=== PATIENT | female | born 1985 | race American Indian/Alaskan Native ===

== ENCOUNTER 2017-09-12 16:49 | Emergency (ER) | payer OTHER ==
--- NOTE | 2017-09-12 21:15 | Emergency Department Report ---
ED General Adult HPI - General Chief complaint: Psych Stated complaint: BIPOLAR/PSYCHOTIC EPISODE Time Seen by Provider: 09/12/17 19:35 Source: patient, EMS Mode of arrival: Ambulatory Limitations: No Limitations - History of Present Illness Initial comments: Patient presents to the emergency department for suicidal ideations and aggressive behavior. Reports the patient has been aggressive with her family at home. The patient has a history of bipolar has not taken her medications. Patient states she is suicidal but would not discuss further plan of action. Severity scale (0 -10): 0 Consistency: constant, intermittent Worsens with: none Treatments Prior to Arrival: none - Related Data Home Medications Medication Instructions Recorded Confirmed Last Taken Unobtainable 07/29/15 07/29/15 Unknown Allergies Allergy/AdvReac Type Severity Reaction Status Date / Time No Known Allergies Allergy Verified 07/29/15 01:18 ED Review of Systems ROS: Stated complaint: BIPOLAR/PSYCHOTIC EPISODE Other details as noted in HPI Comment: All other systems reviewed and negative Constitutional: denies: chills, fever Eyes: denies: eye pain, eye discharge, vision change ENT: denies: ear pain, throat pain Respiratory: denies: cough, shortness of breath, wheezing Cardiovascular: denies: chest pain, palpitations Endocrine: no symptoms reported Gastrointestinal: denies: abdominal pain, nausea, diarrhea Genitourinary: denies: urgency, dysuria, discharge Musculoskeletal: denies: back pain, joint swelling, arthralgia Skin: denies: rash, lesions Neurological: denies: headache, weakness, paresthesias Psychiatric: suicidal thoughts, other (Aggressive behavior ). denies: anxiety, depression Hematological/Lymphatic: denies: easy bleeding, easy bruising ED Past Medical Hx - Past Medical History Previous Medical History?: Yes Hx Psychiatric Treatment: Yes (bipolar) - Surgical History Past Surgical History?: No - Social History Smoking Status: Never Smoker - Medications Home Medications: Home Medications Medication Instructions Recorded Confirmed Last Taken Type Unobtainable 07/29/15 07/29/15 Unknown History ED Physical Exam - General Limitations: No Limitations General appearance: alert, in no apparent distress - Head Head exam: Present: atraumatic, normocephalic - Eye Eye exam: Present: normal appearance - ENT ENT exam: Present: mucous membranes moist - Neck Neck exam: Present: normal inspection - Respiratory Respiratory exam: Present: normal lung sounds bilaterally. Absent: respiratory distress - Cardiovascular Cardiovascular Exam: Present: regular rate, normal rhythm. Absent: systolic murmur, diastolic murmur, rubs, gallop - GI/Abdominal GI/Abdominal exam: Present: soft, normal bowel sounds - Extremities Exam Extremities exam: Present: normal inspection - Back Exam Back exam: Present: normal inspection - Neurological Exam Neurological exam: Present: alert, oriented X3 - Psychiatric Psychiatric exam: Present: flat affect, suicidal ideation - Skin Skin exam: Present: warm, dry, intact, normal color. Absent: rash ED Course Vital Signs 09/12/17 09/12/17 09/12/17 17:13 18:24 18:30 Temperature 98.0 F Pulse Rate 106 H Respiratory 16 Rate Blood Pressure 180/105 163/105 Blood Pressure [Left] O2 Sat by Pulse 100 85 100 Oximetry 09/12/17 09/13/17 19:25 01:23 Temperature 98 F 98.9 F Pulse Rate 98 H 100 H Respiratory 19 18 Rate Blood Pressure Blood Pressure 172/103 141/102 [Left] O2 Sat by Pulse 100 98 Oximetry ED Medical Decision Making - Lab Data Result diagrams: 09/12/17 21:29 09/12/17 21:29 - Medical Decision Making Patient placed on a 1013, psychiatric evaluation has been done, awaiting placement Critical care attestation.: If time is entered above; I have spent that time in minutes in the direct care of this critically ill patient, excluding procedure time. ED Disposition Clinical Impression: Suicidal ideations, Bipolar 1 disorder, manic, mild Disposition: DC/TX-65 PSY HOSP/PSY UNIT Is pt being admited?: No Does the pt Need Aspirin: No Condition: Stable Referrals: PRIMARY CARE, [Primary Care Provider] - 3-5 Days
[2017-09-12 21:40] LABS: Basophils # (Auto) 0.1 K/mm3 (0.0-0.1); Basophils % (Auto) 0.9 % (0.0-1.8); Eosinophils # (Auto) 0.1 K/mm3 (0.0-0.4); Eosinophils % (Auto) 2.3 % (0.0-4.3); Hematocrit 38.4 % (30.3-42.9); Hemoglobin 12.9 gm/dl (10.1-14.3); Lymphocytes # (Auto) 2.4 K/mm3 (1.2-5.4); Lymphocytes % (Auto) 39.6 % (13.4-35.0); Mean Corpuscular HGB Conc 34 % (30-34); Mean Corpuscular Hemoglobin 27 pg (28-32); Mean Corpuscular Volume 80 fl (79-97); Monocytes # (Auto) 0.6 K/mm3 (0.0-0.8); Monocytes % (Auto) 9.3 % (0.0-7.3); Platelet Count 234 K/mm3 (140-440); Red Blood Count 4.81 M/mm3 (3.65-5.03); Red Cell Distribution Width 13.1 % (13.2-15.2)
[2017-09-12 21:54] LABS: BUN/Creatinine Ratio 9; Blood Urea Nitrogen 7 mg/dL (7-17); Calcium 9.1 mg/dL (8.4-10.2); Hemolysis Index 24
[2017-09-12 23:19] LABS: Amphetamine Screen,Urine PRESUMPTIVE NEGATIVE; Benzodiazepines Screen,Urine PRESUMPTIVE NEGATIVE; Cannabinoid Screen,Urine PRESUMPTIVE NEGATIVE; Cocaine Screen,Urine PRESUMPTIVE NEGATIVE; Methadone Screen,Urine PRESUMPTIVE NEGATIVE; Opiate Screen,Urine PRESUMPTIVE NEGATIVE
[2017-09-12] MEDS ORDERED: ATIVAN IM ONE (23:30)
[2017-09-12 23:31] LABS: Bilirubin,Urine NEG (Negative); Blood,Urine LG (Negative); Color,Urine Yellow (Yellow); Mucus,Urine FEW /HPF
[2017-09-12 23:39] LABS: RBC,Urine > 182.0 /HPF (0.0-6.0)
[2017-09-13] MEDS ORDERED: HALDOL IM PRN (20:24)
[2017-09-13] MEDS ORDERED: ATIVAN IM PRN (20:25)
[2017-09-13] MEDS: BENADRYL IM PRN (22:30)
[2017-09-14] MEDS ORDERED: FLEXERIL ONE (07:33)
--- NOTE | 2017-09-14 11:05 | Consultation ---
History of Present Illness - Reason for Consult Consult date: 09/14/17 Reason for consult: Mental Health Evaluation Requesting physician: JOSHUA DAVIS - Chief Complaint Chief complaint: "The patient refused to talk" - History of Present Psychiatric Illness 32 y.o. AA female presenting to [facility] for SI's and aggressive behavior per the ER note. Today the patient refuses to talk during the assessment. Will follow up in 24 hours to complete a psy assessment. Medications and Allergies Allergies Allergy/AdvReac Type Severity Reaction Status Date / Time No Known Allergies Allergy Verified 07/29/15 01:18 Home Medications Medication Instructions Recorded Confirmed Last Taken Type Unobtainable 07/29/15 09/13/17 Unknown History Active Meds: Active Medications Diphenhydramine HCl (Benadryl) 25 mg IM Q4H PRN PRN Reason: insomnia Stop: 09/17/17 20:25 Last Admin: 09/13/17 22:30 Dose: 25 mg Haloperidol Lactate (Haldol) 5 mg IM Q4H PRN PRN Reason: Agitation Stop: 09/17/17 20:23 Last Admin: 09/13/17 22:30 Dose: 5 mg Lorazepam (Ativan) 2 mg IM Q4H PRN PRN Reason: Agitation Stop: 09/17/17 20:24 Past psychiatric history - Past Medical History Past Medical History: other (Unable to obtain ) Past Surgical History: Other (Unable to obtain) - past Psychiatric treatment and history psychiatric treatment history: Unable to obtain a psy hx and a fam psy hx. - Social History Social history: other (Unable to obtain ) Mental Status Exam - Vital signs Last Vital Signs Temp 98.8 F 09/13/17 21:02 Pulse 85 09/13/17 21:02 Resp 18 09/13/17 21:02 BP 144/98 09/13/17 21:02 Pulse Ox 100 09/13/17 21:02 - Exam Narrative exam: Unable to complete the MSE because the patient refuses to cooperative. Results Result Diagrams: 09/12/17 21:29 09/12/17 21:29 All other labs normal. Assessment and Plan Assessment and plan: Impression: Per the ER note, the patient presented with SI's and aggressive behavior. Today the patient refuses to talk during the assessment. Recommendation/Plan: Continue 1013, follow up in 24 to complete assessment, and gather collateral information to help determine proper treatment and dispo.
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
[2017-09-15] MEDS: BENADRYL IM PRN (21:17)
--- NOTE | 2017-09-16 17:38 | Progress Note ---
Subjective - Reason for Consult Reason for consult: depression - Chief Complaint Chief complaint: Subjectively: Patient continues to be somewhat guarded and anxious. Patient continues to have psychomotor retardation as well as minimal engagement with clinical staff as well as interviewer. Patient appears to be minimizing current symptom presentation. When asked about auditory hallucination she denies but then appeared to be responding to internal stimuli during my clinical encounter. General Appearance: hospital gown Sensorium/Consciousness: sleepy Orientation: person, place Eye Contact: limited Attitude / Behavior: guarded Psychomotor & Musculoskeletal Activity: +PMR Mood: "the doctor knows" Affect: constricted, limited range Speech / Language: fluent, reduced rate Thought Processes: perseverative, concerete Thought Content: no SI/HI Perception: +AH Insight: limited Judgement: limitied Capacity for ADLs: independent Plan: Increase his Zyprexa 10 mg at bedtime Assess if this is primary unipolar depression versus bipolar depression through collateral information as currently patient being treated as if his bipolar depression on atypical and a psychotic medication Continue to assess for sleep disturbance and ongoing symptoms of psychosis Reevaluate need for 1013 tomorrow after observing the patient on the higher dose of Zyprexa Mental Status Exam - Vital signs Last Vital Signs Temp 98.4 F 09/16/17 09:39 Pulse 80 09/16/17 09:39 Resp 18 09/16/17 09:39 BP 122/82 09/16/17 09:39 Pulse Ox 100 09/16/17 09:39
--- NOTE | 2017-09-17 13:40 | Progress Note ---
Subjective - Reason for Consult Consult date: 09/17/17 Reason for consult: Psychiatric Follow-up Evaluation - Chief Complaint Chief complaint: Patient continues to be somewhat guarded and anxious. Patient continues to have psychomotor retardation as well as minimal engagement with clinical staff as well as interviewer. Patient appears to be minimizing current symptom presentation. When asked about auditory hallucination she denies but then appeared to be responding to internal stimuli during my clinical encounter. Mental Status Exam - Vital signs Last Vital Signs Temp 98.2 F 09/17/17 09:00 Pulse 71 09/17/17 09:00 Resp 18 09/17/17 09:00 BP 98/63 09/17/17 09:00 Pulse Ox 98 09/17/17 09:00 - Exam Narrative exam: Mental Status Exam: General Appearance: hospital gown Sensorium/Consciousness: sleepy Orientation: person, place Eye Contact: limited Attitude / Behavior: guarded Psychomotor & Musculoskeletal Activity: +PMR Mood: "the doctor knows" Affect: constricted, limited range Speech / Language: fluent, reduced rate Thought Processes: perseverative, concerete Thought Content: no SI/HI Perception: +AH Insight: limited Judgement: limitied Capacity for ADLs: independent Assessment and Plan Impression: Unspecified Mood DO with psy features.. Today the patient is calm during the assessment. UDS is negative. DDx: Bipolar DO, R/O MDD Recommendation/Plan: Continue 1013 with placement to inpatient psychiatric services Increase his Zyprexa 10 mg at bedtime Assess if this is primary unipolar depression versus bipolar depression through collateral information as currently patient being treated as if his bipolar depression on atypical and a psychotic medication Continue to assess for sleep disturbance and ongoing symptoms of psychosis Reevaluate need for 1013 tomorrow after observing the patient on the higher dose of Zyprexa
[2017-09-17 20:19] VITALS: BP 107/78
== END 2017-09-18 02:55 ==
LOC: EEVIPCON 16:49 → ED 16:49
DX: F31.9 Bipolar disorder, unspecified (principal); R45.851 Suicidal ideations
CPT/HCPCS: 36415; 80048; 80307; 81001; 84703; 85025; 96372; 99285; G0480; J1200; J1630; J2060; 80320

== ENCOUNTER 2019-08-15 19:11 | Emergency (ER) | payer MEDICAID ==
--- NOTE | 2019-08-15 19:31 | Emergency Department Report ---
Blank Doc - Documentation Documentation: 34-year-old female that presents with epigastric pain. Denies any n/v. This initial assessment/diagnostic orders/clinical plan/treatment(s) is/are subject to change based on patient's health status, clinical progression and re- assessment by fellow clinical providers in the ED. Further treatment and workup at subsequent clinical providers discretion. Patient/guardians urged not to elope from the ED as their condition may be serious if not clinically assessed and managed. Initial orders include: 1- Patient sent to [facility] for further evaluation and treatment 2- labs 3- UA
[2019-08-15 20:11] LABS: Basophils % (Auto) 0.9 % (0.0-1.8); Eosinophils % (Auto) 0.7 % (0.0-4.3); Hematocrit 39.7 % (30.3-42.9); Hemoglobin 13.2 gm/dl (10.1-14.3); Lymphocytes % (Auto) 37.4 % (13.4-35.0); Mean Corpuscular HGB Conc 33 % (30-34); Mean Corpuscular Volume 80 fl (79-97); Monocytes # (Auto) 0.3 K/mm3 (0.0-0.8); Monocytes % (Auto) 4.9 % (0.0-7.3); Platelet Count 349 K/mm3 (140-440); Red Blood Count 4.93 M/mm3 (3.65-5.03); Red Cell Distribution Width 12.3 % (13.2-15.2)
[2019-08-15 20:26] LABS: Alanine Aminotransferase 14 units/L (7-56); Albumin 4.9 g/dL (3.9-5); BUN/Creatinine Ratio 18; Blood Urea Nitrogen 14 mg/dL (7-17); Hemolysis Index 7
[2019-08-15] MEDS ORDERED: IBUPROFEN 800 MG TAB PO ONE (20:41)
--- NOTE | 2019-08-15 20:52 | Emergency Department Report ---
ED Chest Pain HPI - General Chief Complaint: Chest Pain Stated Complaint: CP Time Seen by Provider: 08/15/19 19:29 Source: patient Mode of arrival: Ambulatory Limitations: No Limitations - History of Present Illness Initial Comments: Ms. Brooks is a 34 yo female with history of bipolar disorder who presents with epigastric pain radiating to the back sharp lower sternal pain. Tylenol did not provide any relief. Denies fever cough shortness of breath vomiting. Mild pain. Persistent. Denies leg pain. No use of control or oral contraceptives. MD Complaint: chest pain -: Gradual, days(s) (2) Onset: during rest Pain Location: substernal Severity: moderate Quality: sharp Consistency: constant Improves With: nothing Worsens With: nothing - Related Data Previous Rx's Medication Instructions Recorded Last Taken Type Ibuprofen [Motrin 800 MG tab] 800 mg PO Q8HR PRN #15 tablet 08/15/19 Unknown Rx Allergies Allergy/AdvReac Type Severity Reaction Status Date / Time No Known Allergies Allergy Verified 07/29/15 01:18 Heart Score - HEART Score History: Slightly suspicious EKG: Non-specific Age: < 45 Risk factors: No known risk factors Troponin: < normal limit HEART Score: 1 ED Review of Systems ROS: Stated complaint: CP Other details as noted in HPI Comment: All other systems reviewed and negative Constitutional: denies: fever, malaise Cardiovascular: chest pain Gastrointestinal: denies: abdominal pain ED Past Medical Hx - Past Medical History Previous Medical History?: Yes Hx Psychiatric Treatment: Yes (bipolar) - Social History Smoking Status: Never Smoker Substance Use Type: None - Medications Home Medications: Home Medications Medication Instructions Recorded Confirmed Last Taken Type Ibuprofen [Motrin 800 MG tab] 800 mg PO Q8HR PRN #15 tablet 08/15/19 Unknown Rx ED Physical Exam - General Limitations: No Limitations General appearance: alert, in no apparent distress - Head Head exam: Present: atraumatic, normocephalic - Eye Eye exam: Present: normal appearance - ENT ENT exam: Present: mucous membranes moist - Neck Neck exam: Present: normal inspection, full ROM - Respiratory Respiratory exam: Present: normal lung sounds bilaterally. Absent: respiratory distress, wheezes, rales, rhonchi - Cardiovascular Cardiovascular Exam: Present: regular rate, normal rhythm, normal heart sounds. Absent: systolic murmur, diastolic murmur, rubs, gallop - GI/Abdominal GI/Abdominal exam: Present: soft, normal bowel sounds. Absent: distended, tenderness, guarding - Extremities Exam Extremities exam: Present: normal inspection - Back Exam Back exam: Present: normal inspection - Neurological Exam Neurological exam: Present: alert, oriented X3 - Psychiatric Psychiatric exam: Present: normal affect, normal mood - Skin Skin exam: Present: warm, dry, intact, normal color. Absent: rash ED Course Vital Signs 08/15/19 08/15/19 19:20 19:24 Temperature 97.8 F 97.8 F Pulse Rate 96 H 93 H Respiratory 18 18 Rate Blood Pressure 152/87 152/87 O2 Sat by Pulse 100 100 Oximetry ED Medical Decision Making - Lab Data Result diagrams: 08/15/19 19:39 08/15/19 19:39 Laboratory Results - last 24 hr 08/15/19 08/15/19 08/15/19 19:39 19:39 19:39 WBC 5.4 RBC 4.93 Hgb 13.2 Hct 39.7 MCV 80 MCH 27 L MCHC 33 RDW 12.3 L Plt Count 349 Lymph % (Auto) 37.4 H [place] % (Auto) 4.9 Eos % (Auto) 0.7 Baso % (Auto) 0.9 Lymph # 2.0 [place] # 0.3 Eos # 0.0 Baso # 0.0 Seg Neutrophils % 56.1 Seg Neutrophils # 3.1 Sodium 136 L Potassium 3.6 Chloride 97.7 L Carbon Dioxide 19 L Anion Gap 23 BUN 14 Creatinine 0.8 Estimated GFR > 60 BUN/Creatinine Ratio 18 Glucose 87 Calcium 10.0 Total Bilirubin 0.40 AST 19 ALT 14 Alkaline Phosphatase 48 Total Protein 8.7 H Albumin 4.9 Albumin/Globulin Ratio 1.3 Lipase 24 HCG, Qual Negative - EKG Data 08/15/19 20:51 EKG obtained 1925 Normal sinus rhythm rate 95 bpm normal axis normal intervals nonspecific T wave pattern no ST elevation - Medical Decision Making This is a 34-year-old female presents with nonspecific mild sharp chest pain for the past 2 days. No indication of pulmonary embolism due to the nature of the pain. She is PERC negative. No evidence of pericarditis or pneumonia. I recommended ibuprofen for chest wall pain. She will follow-up with her PCP. She understands return precautions. Critical care attestation.: If time is entered above; I have spent that time in minutes in the direct care of this critically ill patient, excluding procedure time. ED Disposition Clinical Impression: Chest pain Disposition: DC-01 TO HOME OR SELFCARE Is pt being admited?: No Does the pt Need Aspirin: No Condition: Stable Instructions: Chest Pain (ED) Prescriptions: Ibuprofen [Motrin 800 MG tab] 800 mg PO Q8HR PRN #15 tablet PRN Reason: Pain , Severe (7-10) Referrals: LANG BRONSON MD [Staff Physician] - 3-5 Days
[2019-08-15 22:09] LABS: Bacteria,Urine 1+ /HPF (Negative); Bilirubin,Urine NEG (Negative); Blood,Urine NEG (Negative); Color,Urine Yellow (Yellow); Mucus,Urine 3+ /HPF; Urobilinogen,Urine < 2.0 mg/dL (<2.0)
[2019-08-15 22:20] VITALS: BP 147/82
== END 2019-08-15 22:21 | disposition home or self-care (01) ==
LOC: ED 19:11
DX: R07.2 Precordial pain (principal)
CPT/HCPCS: 36415; 80053; 81001; 83690; 84703; 85025; 93005; 93010; 99283

== ENCOUNTER 2020-02-29 13:02 | Emergency (ER) | payer MEDICAID ==
[2020-02-29] MEDS ORDERED: SODIUM CHLORIDE 0.9% 500 ML 500 ML IV ONE (13:13)
[2020-02-29] MEDS ORDERED: SODIUM CHLORIDE 0.9% 1000 ML 1,000 ML IV ONE (13:49)
[2020-02-29] MEDS ORDERED: ACETAMINOPHEN 500 MG TAB PO ONE (13:49)
[2020-02-29] MEDS ORDERED: LORazepam 2 MG/ML VIAL IV ONE (13:49)
--- NOTE | 2020-02-29 13:53 | Emergency Department Report ---
ED Altered Mental Status HPI - General Chief Complaint: Altered Mental Status Stated Complaint: PSYCH Time Seen by Provider: 02/29/20 13:43 Source: family Mode of arrival: Stretcher Limitations: Altered Mental Status - History of Present Illness Initial Comments: Patient is 34 years old female with history of schizophrenia. Patient brought to the emergency room after patient was found with altered mental status outside her neighborhoods. Family stated that the last time they saw her was 2 days ago. Upon arrival to the ER patient is alert however she is very confused and she is not answering questions appropriately. Patient found to have a temp erature of 101.2 and tachycardic. Sepsis protocol initiated and patient received normal saline, Tylenol and Zosyn. Complaint: altered mental status, confusion - Related Data Previous Rx's Medication Instructions Recorded Last Taken Type Ibuprofen [Motrin 800 MG tab] 800 mg PO Q8HR PRN #15 tablet 08/15/19 Unknown Rx Allergies Allergy/AdvReac Type Severity Reaction Status Date / Time No Known Allergies Allergy Verified 03/01/20 09:57 ED Review of Systems ROS: Stated complaint: PSYCH Other details as noted in HPI Comment: Unobtainable due to pts medical conditions ED Past Medical Hx - Past Medical History Previous Medical History?: Yes Hx Hypertension: Yes Hx Psychiatric Treatment: Yes (bipolar) - Social History Smoking Status: Never Smoker Substance Use Type: None - Medications Home Medications: Home Medications Medication Instructions Recorded Confirmed Last Taken Type Ibuprofen [Motrin 800 MG tab] 800 mg PO Q8HR PRN #15 tablet 08/15/19 Unknown Rx ED Physical Exam - General Limitations: Altered Mental Status General appearance: alert, in no apparent distress - Head Head exam: Present: atraumatic, normocephalic, normal inspection - Eye Eye exam: Present: normal appearance, PERRL - ENT ENT exam: Present: mucous membranes dry - Neck Neck exam: Present: normal inspection, full ROM. Absent: tenderness, meningismus - Respiratory Respiratory exam: Present: normal lung sounds bilaterally - Cardiovascular Cardiovascular Exam: Present: tachycardia - GI/Abdominal GI/Abdominal exam: Present: soft, normal bowel sounds. Absent: distended, tenderness, guarding, rebound, rigid, organomegaly, mass, bruit, pulsatile mass, hernia - Extremities Exam Extremities exam: Present: normal inspection, full ROM, normal capillary refill. Absent: calf tenderness - Back Exam Back exam: Present: normal inspection, full ROM. Absent: CVA tenderness (R), CVA tenderness (L) - Neurological Exam Neurological exam: Present: alert, altered - Psychiatric Psychiatric exam: Present: agitated, anxious - Skin Skin exam: Present: dry ED Course Vital Signs 02/29/20 02/29/20 02/29/20 13:08 13:16 13:30 Temperature Pulse Rate 111 H Respiratory 27 H 17 Rate Blood Pressure 188/138 188/138 Blood Pressure [Right] O2 Sat by Pulse 65 L 100 Oximetry 02/29/20 02/29/20 02/29/20 13:46 13:48 14:00 Temperature 101.2 F H Pulse Rate 104 H 101 H 99 H Respiratory 16 18 19 Rate Blood Pressure 172/114 169/109 Blood Pressure 169/109 [Right] O2 Sat by Pulse 100 100 100 Oximetry 02/29/20 02/29/20 02/29/20 14:14 14:16 14:30 Temperature Pulse Rate 97 H 100 H Respiratory 18 17 17 Rate Blood Pressure 176/119 178/97 Blood Pressure [Right] O2 Sat by Pulse 100 99 Oximetry 02/29/20 02/29/20 02/29/20 14:46 15:00 15:14 Temperature Pulse Rate 81 77 Respiratory 13 12 18 Rate Blood Pressure 180/99 135/80 Blood Pressure [Right] O2 Sat by Pulse 99 100 Oximetry 02/29/20 02/29/20 02/29/20 15:16 15:30 15:46 Temperature Pulse Rate 109 H 100 H 89 Respiratory 21 15 16 Rate Blood Pressure 128/83 128/83 140/96 Blood Pressure [Right] O2 Sat by Pulse 99 100 100 Oximetry 02/29/20 02/29/20 02/29/20 16:00 16:15 16:30 Temperature Pulse Rate 92 H 80 87 Respiratory 12 16 15 Rate Blood Pressure 140/96 129/75 129/75 Blood Pressure [Right] O2 Sat by Pulse 100 98 100 Oximetry 02/29/20 02/29/20 02/29/20 16:45 17:01 17:15 Temperature Pulse Rate 83 80 76 Respiratory 15 14 14 Rate Blood Pressure 158/99 127/84 121/81 Blood Pressure [Right] O2 Sat by Pulse 99 99 98 Oximetry 02/29/20 02/29/20 02/29/20 17:30 17:45 18:00 Temperature Pulse Rate 75 72 72 Respiratory 16 13 21 Rate Blood Pressure 111/77 138/89 119/77 Blood Pressure 111/77 [Right] O2 Sat by Pulse 99 100 99 Oximetry 02/29/20 02/29/20 02/29/20 18:15 18:30 18:45 Temperature Pulse Rate 70 70 90 Respiratory 13 13 16 Rate Blood Pressure 126/75 132/77 132/77 Blood Pressure 132/77 [Right] O2 Sat by Pulse 99 100 100 Oximetry 02/29/20 02/29/20 02/29/20 19:00 19:15 19:31 Temperature Pulse Rate 96 H 85 87 Respiratory 16 16 18 Rate Blood Pressure 159/132 148/119 166/105 Blood Pressure [Right] O2 Sat by Pulse 99 99 99 Oximetry 02/29/20 02/29/20 02/29/20 20:23 20:30 21:23 Temperature Pulse Rate Respiratory Rate Blood Pressure 138/88 138/88 Blood Pressure [Right] O2 Sat by Pulse 100 99 100 Oximetry 02/29/20 02/29/20 02/29/20 21:30 21:45 22:01 Temperature Pulse Rate Respiratory Rate Blood Pressure 141/81 148/83 107/71 Blood Pressure [Right] O2 Sat by Pulse 99 100 100 Oximetry 02/29/20 02/29/20 02/29/20 22:15 22:30 22:45 Temperature Pulse Rate Respiratory Rate Blood Pressure 174/106 166/106 166/106 Blood Pressure [Right] O2 Sat by Pulse 98 99 81 L Oximetry 02/29/20 02/29/20 03/01/20 23:00 23:15 08:33 Temperature 97.9 F Pulse Rate 102 H Respiratory 20 Rate Blood Pressure 154/106 169/105 Blood Pressure 146/90 [Right] O2 Sat by Pulse 99 100 100 Oximetry 03/01/20 03/02/20 03/02/20 19:10 04:23 08:09 Temperature 97.9 F 98.0 F 97.6 F Pulse Rate 88 87 85 Respiratory 16 18 20 Rate Blood Pressure 143/99 139/82 Blood Pressure 148/108 [Right] O2 Sat by Pulse 100 100 99 Oximetry 03/02/20 19:09 Temperature 98.3 F Pulse Rate 85 Respiratory 18 Rate Blood Pressure 138/91 Blood Pressure [Right] O2 Sat by Pulse 99 Oximetry - Lab Data Result diagrams: 02/29/20 13:55 02/29/20 13:55 Lab Results 02/29/20 02/29/20 02/29/20 Range/Units 13:55 13:55 13:55 WBC 5.1 (4.5-11.0) K/mm3 RBC 5.19 H (3.65-5.03) M/mm3 Hgb 13.8 (10.1-14.3) gm/dl Hct 40.8 (30.3-42.9) % MCV 79 (79-97) fl MCH 27 L (28-32) pg MCHC 34 (30-34) % RDW 13.3 (13.2-15.2) % Plt Count 269 (140-440) K/mm3 Lymph % (Auto) 46.1 H (13.4-35.0) % [place] % (Auto) 8.6 H (0.0-7.3) % Eos % (Auto) 1.2 (0.0-4.3) % Baso % (Auto) 1.1 (0.0-1.8) % Lymph # (Auto) 2.4 (1.2-5.4) K/mm3 [place] # (Auto) 0.4 (0.0-0.8) K/mm3 Eos # (Auto) 0.1 (0.0-0.4) K/mm3 Baso # (Auto) 0.1 (0.0-0.1) K/mm3 Seg Neutrophils % 43.0 (40.0-70.0) % Seg Neutrophils # 2.2 (1.8-7.7) K/mm3 PT 13.7 (12.2-14.9) Sec. INR 1.03 (0.87-1.13) VBG pH (7.320-7.420) Sodium 139 (137-145) mmol/L Potassium 3.3 L (3.6-5.0) mmol/L Chloride 95.9 L (98-107) mmol/L Carbon Dioxide 22 (22-30) mmol/L Anion Gap 24 mmol/L BUN 9 (7-17) mg/dL Creatinine 0.8 (0.6-1.2) mg/dL Estimated GFR > 60 ml/min BUN/Creatinine Ratio 11 % Glucose 96 (65-100) mg/dL Lactic Acid (0.7-2.0) mmol/L Calcium 10.1 (8.4-10.2) mg/dL Total Bilirubin 0.70 (0.1-1.2) mg/dL Direct Bilirubin < 0.2 (0-0.2) mg/dL AST 29 (5-40) units/L ALT 19 (7-56) units/L Alkaline Phosphatase 66 (35-129) units/L Total Protein 8.3 H (6.3-8.2) g/dL Albumin 5.0 (3.9-5) g/dL Albumin/Globulin Ratio 1.5 % HCG, Qual (Negative) Urine Color (Yellow) Urine Turbidity (Clear) Urine pH (5.0-7.0) Ur Specific [place] (1.003-1.030) Urine Protein (Negative) mg/dL Urine Glucose (UA) (Negative) mg/dL Urine Ketones (Negative) mg/dL Urine Blood (Negative) Urine Nitrite (Negative) Urine Bilirubin (Negative) Urine Urobilinogen (<2.0) mg/dL Ur Leukocyte Esterase (Negative) Urine WBC (Auto) (0.0-6.0) /HPF Urine RBC (Auto) (0.0-6.0) /HPF U Epithel Cells (Auto) (0-13.0) /HPF Urine Bacteria (Auto) (Negative) /HPF Urine Mucus /HPF Salicylates (2.8-20.0) mg/dL Urine Opiates Screen Urine Methadone Screen Acetaminophen (10.0-30.0) ug/mL Ur Barbiturates Screen Ur Phencyclidine Scrn Ur Amphetamines Screen U Benzodiazepines Scrn Urine Cocaine Screen U Marijuana (THC) Screen Drugs of Abuse Note Plasma/Serum Alcohol (0-0.07) % Coronavirus (PCR) (Negative) 02/29/20 02/29/20 02/29/20 Range/Units 13:55 13:55 13:55 WBC (4.5-11.0) K/mm3 RBC (3.65-5.03) M/mm3 Hgb (10.1-14.3) gm/dl Hct (30.3-42.9) % MCV (79-97) fl MCH (28-32) pg MCHC (30-34) % RDW (13.2-15.2) % Plt Count (140-440) K/mm3 Lymph % (Auto) (13.4-35.0) % [place] % (Auto) (0.0-7.3) % Eos % (Auto) (0.0-4.3) % Baso % (Auto) (0.0-1.8) % Lymph # (Auto) (1.2-5.4) K/mm3 [place] # (Auto) (0.0-0.8) K/mm3 Eos # (Auto) (0.0-0.4) K/mm3 Baso # (Auto) (0.0-0.1) K/mm3 Seg Neutrophils % (40.0-70.0) % Seg Neutrophils # (1.8-7.7) K/mm3 PT (12.2-14.9) Sec. INR (0.87-1.13) VBG pH 7.391 (7.320-7.420) Sodium (137-145) mmol/L Potassium (3.6-5.0) mmol/L Chloride (98-107) mmol/L Carbon Dioxide (22-30) mmol/L Anion Gap mmol/L BUN (7-17) mg/dL Creatinine (0.6-1.2) mg/dL Estimated GFR ml/min BUN/Creatinine Ratio % Glucose (65-100) mg/dL Lactic Acid 1.20 (0.7-2.0) mmol/L Calcium (8.4-10.2) mg/dL Total Bilirubin (0.1-1.2) mg/dL Direct Bilirubin (0-0.2) mg/dL AST (5-40) units/L ALT (7-56) units/L Alkaline Phosphatase (35-129) units/L Total Protein (6.3-8.2) g/dL Albumin (3.9-5) g/dL Albumin/Globulin Ratio % HCG, Qual (Negative) Urine Color (Yellow) Urine Turbidity (Clear) Urine pH (5.0-7.0) Ur Specific [place] (1.003-1.030) Urine Protein (Negative) mg/dL Urine Glucose (UA) (Negative) mg/dL Urine Ketones (Negative) mg/dL Urine Blood (Negative) Urine Nitrite (Negative) Urine Bilirubin (Negative) Urine Urobilinogen (<2.0) mg/dL Ur Leukocyte Esterase (Negative) Urine WBC (Auto) (0.0-6.0) /HPF Urine RBC (Auto) (0.0-6.0) /HPF U Epithel Cells (Auto) (0-13.0) /HPF Urine Bacteria (Auto) (Negative) /HPF Urine Mucus /HPF Salicylates < 0.3 L (2.8-20.0) mg/dL Urine Opiates Screen Urine Methadone Screen Acetaminophen (10.0-30.0) ug/mL Ur Barbiturates Screen Ur Phencyclidine Scrn Ur Amphetamines Screen U Benzodiazepines Scrn Urine Cocaine Screen U Marijuana (THC) Screen Drugs of Abuse Note Plasma/Serum Alcohol (0-0.07) % Coronavirus (PCR) (Negative) 02/29/20 02/29/20 02/29/20 Range/Units 13:55 13:55 13:55 WBC (4.5-11.0) K/mm3 RBC (3.65-5.03) M/mm3 Hgb (10.1-14.3) gm/dl Hct (30.3-42.9) % MCV (79-97) fl MCH (28-32) pg MCHC (30-34) % RDW (13.2-15.2) % Plt Count (140-440) K/mm3 Lymph % (Auto) (13.4-35.0) % [place] % (Auto) (0.0-7.3) % Eos % (Auto) (0.0-4.3) % Baso % (Auto) (0.0-1.8) % Lymph # (Auto) (1.2-5.4) K/mm3 [place] # (Auto) (0.0-0.8) K/mm3 Eos # (Auto) (0.0-0.4) K/mm3 Baso # (Auto) (0.0-0.1) K/mm3 Seg Neutrophils % (40.0-70.0) % Seg Neutrophils # (1.8-7.7) K/mm3 PT (12.2-14.9) Sec. INR (0.87-1.13) VBG pH (7.320-7.420) Sodium (137-145) mmol/L Potassium (3.6-5.0) mmol/L Chloride (98-107) mmol/L Carbon Dioxide (22-30) mmol/L Anion Gap mmol/L BUN (7-17) mg/dL Creatinine (0.6-1.2) mg/dL Estimated GFR ml/min BUN/Creatinine Ratio % Glucose (65-100) mg/dL Lactic Acid (0.7-2.0) mmol/L Calcium (8.4-10.2) mg/dL Total Bilirubin (0.1-1.2) mg/dL Direct Bilirubin (0-0.2) mg/dL AST (5-40) units/L ALT (7-56) units/L Alkaline Phosphatase (35-129) units/L Total Protein (6.3-8.2) g/dL Albumin (3.9-5) g/dL Albumin/Globulin Ratio % HCG, Qual Negative (Negative) Urine Color (Yellow) Urine Turbidity (Clear) Urine pH (5.0-7.0) Ur Specific [place] (1.003-1.030) Urine Protein (Negative) mg/dL Urine Glucose (UA) (Negative) mg/dL Urine Ketones (Negative) mg/dL Urine Blood (Negative) Urine Nitrite (Negative) Urine Bilirubin (Negative) Urine Urobilinogen (<2.0) mg/dL Ur Leukocyte Esterase (Negative) Urine WBC (Auto) (0.0-6.0) /HPF Urine RBC (Auto) (0.0-6.0) /HPF U Epithel Cells (Auto) (0-13.0) /HPF Urine Bacteria (Auto) (Negative) /HPF Urine Mucus /HPF Salicylates (2.8-20.0) mg/dL Urine Opiates Screen Urine Methadone Screen Acetaminophen 5.0 L (10.0-30.0) ug/mL Ur Barbiturates Screen Ur Phencyclidine Scrn Ur Amphetamines Screen U Benzodiazepines Scrn Urine Cocaine Screen U Marijuana (THC) Screen Drugs of Abuse Note Plasma/Serum Alcohol < 0.01 (0-0.07) % Coronavirus (PCR) (Negative) 02/29/20 02/29/20 03/02/20 Range/Units 16:50 16:50 10:00 WBC (4.5-11.0) K/mm3 RBC (3.65-5.03) M/mm3 Hgb (10.1-14.3) gm/dl Hct (30.3-42.9) % MCV (79-97) fl MCH (28-32) pg MCHC (30-34) % RDW (13.2-15.2) % Plt Count (140-440) K/mm3 Lymph % (Auto) (13.4-35.0) % [place] % (Auto) (0.0-7.3) % Eos % (Auto) (0.0-4.3) % Baso % (Auto) (0.0-1.8) % Lymph # (Auto) (1.2-5.4) K/mm3 [place] # (Auto) (0.0-0.8) K/mm3 Eos # (Auto) (0.0-0.4) K/mm3 Baso # (Auto) (0.0-0.1) K/mm3 Seg Neutrophils % (40.0-70.0) % Seg Neutrophils # (1.8-7.7) K/mm3 PT (12.2-14.9) Sec. INR (0.87-1.13) VBG pH (7.320-7.420) Sodium (137-145) mmol/L Potassium (3.6-5.0) mmol/L Chloride (98-107) mmol/L Carbon Dioxide (22-30) mmol/L Anion Gap mmol/L BUN (7-17) mg/dL Creatinine (0.6-1.2) mg/dL Estimated GFR ml/min BUN/Creatinine Ratio % Glucose (65-100) mg/dL Lactic Acid (0.7-2.0) mmol/L Calcium (8.4-10.2) mg/dL Total Bilirubin (0.1-1.2) mg/dL Direct Bilirubin (0-0.2) mg/dL AST (5-40) units/L ALT (7-56) units/L Alkaline Phosphatase (35-129) units/L Total Protein (6.3-8.2) g/dL Albumin (3.9-5) g/dL Albumin/Globulin Ratio % HCG, Qual (Negative) Urine Color Straw (Yellow) Urine Turbidity Clear (Clear) Urine pH 6.0 (5.0-7.0) Ur Specific [place] 1.006 (1.003-1.030) Urine Protein <15 mg/dl (Negative) mg/dL Urine Glucose (UA) Neg (Negative) mg/dL Urine Ketones 20 (Negative) mg/dL Urine Blood Neg (Negative) Urine Nitrite Neg (Negative) Urine Bilirubin Neg (Negative) Urine Urobilinogen < 2.0 (<2.0) mg/dL Ur Leukocyte Esterase Neg (Negative) Urine WBC (Auto) < 1.0 (0.0-6.0) /HPF Urine RBC (Auto) 2.0 (0.0-6.0) /HPF U Epithel Cells (Auto) 5.0 (0-13.0) /HPF Urine Bacteria (Auto) 1+ (Negative) /HPF Urine Mucus Few /HPF Salicylates (2.8-20.0) mg/dL Urine Opiates Screen Presumptive negative Urine Methadone Screen Presumptive negative Acetaminophen (10.0-30.0) ug/mL Ur Barbiturates Screen Presumptive negative Ur Phencyclidine Scrn Presumptive negative Ur Amphetamines Screen Presumptive negative U Benzodiazepines Scrn Presumptive negative Urine Cocaine Screen Presumptive negative U Marijuana (THC) Screen Presumptive negative Drugs of Abuse Note Disclamer Plasma/Serum Alcohol (0-0.07) % Coronavirus (PCR) Negative (Negative) - Radiology Data Radiology results: report reviewed - Medical Decision Making Patient is 34 years old female with history of schizophrenia. Patient brought to the emergency room after patient was found with altered mental status outside her neighborhoods. Family stated that the last time they saw her was 2 days ago. Upon arrival to the ER patient is alert however she is very confused and she is not answering questions appropriately. Patient found to have a temperature of 101.2 and tachycardic. Sepsis protocol initiated and patient received normal saline, Tylenol and Zosyn. Labs reviewed and is unremarkable. Patient remained stable with a stable vital sign. Temperature is 98.2. Chest x-ray is unremarkable. Urine is negative with a negative urine drug screen also. Patient is currently in acute psychosis. Patient put on 1013 pending mental health evaluation. Patient medically cleared to be evaluated by our psychiatric team. Critical care attestation.: If time is entered above; I have spent that time in minutes in the direct care of this critically ill patient, excluding procedure time. ED Disposition Clinical Impression: Fever, Altered mental status, Acute psychosis Disposition: DC/TX-70 ANOTHER TYPE HLTHCARE Is pt being admited?: No Condition: Stable Referrals: PRIMARY CARE, [Primary Care Provider] - 3-5 Days
[2020-02-29 14:15] LABS: Basophils # (Auto) 0.1 K/mm3 (0.0-0.1); Basophils % (Auto) 1.1 % (0.0-1.8); Eosinophils # (Auto) 0.1 K/mm3 (0.0-0.4); Eosinophils % (Auto) 1.2 % (0.0-4.3); Hematocrit 40.8 % (30.3-42.9); Hemoglobin 13.8 gm/dl (10.1-14.3); Lymphocytes # (Auto) 2.4 K/mm3 (1.2-5.4); Lymphocytes % (Auto) 46.1 % (13.4-35.0); Mean Corpuscular HGB Conc 34 % (30-34); Mean Corpuscular Volume 79 fl (79-97); Monocytes # (Auto) 0.4 K/mm3 (0.0-0.8); Monocytes % (Auto) 8.6 % (0.0-7.3); Platelet Count 269 K/mm3 (140-440); Red Blood Count 5.19 M/mm3 (3.65-5.03); Red Cell Distribution Width 13.3 % (13.2-15.2)
[2020-02-29 14:26] LABS: INR 1.03 (0.87-1.13)
[2020-02-29 14:32] LABS: Alanine Aminotransferase 19 units/L (7-56); BUN/Creatinine Ratio 11; Blood Urea Nitrogen 9 mg/dL (7-17); Calcium 10.1 mg/dL (8.4-10.2); Hemolysis Index 17
[2020-02-29 14:45] LABS: Bilirubin,Direct < 0.2 mg/dL (0-0.2)
--- NOTE | 2020-02-29 15:31 | XRay Report ---
CHEST 1 VIEW 3:06 PM INDICATION / CLINICAL INFORMATION: Sepsis. COMPARISON: None available. FINDINGS: SUPPORT DEVICES: None. HEART / MEDIASTINUM: The heart size and pulmonary vasculature are normal. LUNGS / PLEURA: No significant pulmonary or pleural abnormality. No pneumothorax. ADDITIONAL FINDINGS: No significant additional findings. IMPRESSION: No acute findings. There is no evidence of pneumonia. Signer Name: Jules Holloway MD Signed: 02/29/2020 3:26 PM Workstation Name: [id number]
[2020-02-29 17:19] LABS: Bacteria,Urine 1+ /HPF (Negative); Bilirubin,Urine NEG (Negative); Blood,Urine NEG (Negative); Color,Urine Straw (Yellow); Mucus,Urine FEW /HPF; Protein,Urine <15 mg/dL mg/dL (Negative); Urobilinogen,Urine < 2.0 mg/dL (<2.0); WBC,Urine < 1.0 /HPF (0.0-6.0)
[2020-02-29 17:24] LABS: Amphetamine Screen,Urine PRESUMPTIVE NEGATIVE; Benzodiazepines Screen,Urine PRESUMPTIVE NEGATIVE; Cannabinoid Screen,Urine PRESUMPTIVE NEGATIVE; Cocaine Screen,Urine PRESUMPTIVE NEGATIVE; Methadone Screen,Urine PRESUMPTIVE NEGATIVE; Opiate Screen,Urine PRESUMPTIVE NEGATIVE
[2020-03-01] MEDS ORDERED: LORazepam 1 MG TAB ONE (02:42)
[2020-03-01] MEDS ORDERED: LORazepam 1 MG TAB PO ONE (02:44)
[2020-03-01] MEDS ORDERED: LORazepam 2 MG/ML VIAL IV ONE (04:05)
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
[2020-03-01] MEDS: BENZTROPINE 0.5 MG TAB PO SCH (13:05)
[2020-03-01] MEDS: VALPROIC ACID 250 MG CAP PO SCH ×2 (13:05→22:02)
[2020-03-01] MEDS: ZIPRASIDONE 20 MG CAP PO SCH ×2 (13:05→22:04)
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
[2020-03-02] MEDS: BENZTROPINE 0.5 MG TAB PO SCH (16:40)
[2020-03-02] MEDS: VALPROIC ACID 250 MG CAP PO SCH (16:41)
[2020-03-02] MEDS: ZIPRASIDONE 20 MG CAP PO SCH (16:41)
[2020-03-02 20:22] VITALS: BP 138/91
== END 2020-03-02 20:29 | disposition other institution (70) ==
LOC: ED 13:02
DX: F23 Brief psychotic disorder (principal); R50.9 Fever, unspecified; R41.82 Altered mental status, unspecified; I10 Essential (primary) hypertension; F31.9 Bipolar disorder, unspecified; Z79.899 Other long term (current) drug therapy; Z20.828 Contact with and (suspected) exposure to other viral communicable diseases
CPT/HCPCS: 36415; 71045; 80053; 80307; 81001; 82140; 82248; 82805; 84703; 85025; 85610; 87040; 87086; 93005; 96361; 96374; 96376; 99285; J2060; J7030; J7040; U0003; 80320; G0480